=== PATIENT | female | born 1980 | race Caucasian/White ===

== ENCOUNTER 2018-03-10 16:54 | Emergency (ER) | payer OTHER ==
[2018-03-10 17:01] VITALS: TEMP 97.9
[2018-03-10] MEDS ORDERED: KETOROLAC 30 MG/ML 1 ML VIAL IVP STA (18:05)
[2018-03-10] MEDS ORDERED: SODIUM CHLORIDE 0.9% 1,000 ML IV STA (18:05)
--- NOTE | 2018-03-10 18:09 | ED ---
Back Pain HPI - General Chief Complaint: Back Pain/Injury Stated Complaint: Kidney infection Time Seen by Provider: 03/10/18 18:00 Source: patient Limitations: no limitations - History of Present Illness Initial Comments: 38-year-old female patient presents to the emergency department today for evaluation of left flank pain and fevers. The patient states that when she was diagnosed with a kidney infection at urgent care yesterday. States he did start her on Cipro. Patient states that today she seems to be feeling worse. States that she is having increased pain to the left flank. Patient states she has had temperatures up to 101F. Patient states she occasionally becomes nauseous but has not vomited. States that she has a persistent aching in her left flank however does occasionally get very sharp pains to the left side. Patient denies any constipation or diarrhea with this. States that she does have some dysuria but denies any urinary urgency or urinary frequency. Denies any evidence of hematuria. Patient states that she used to get urinary tract infections in her early 20s but no longer has any problems with this. Patient denies any recent rash, shortness breath, chest pain, numbness, tingling, dizziness, weakness, headache, visual changes, or any other complaints. - Related Data Home Medications Medication Instructions Recorded Confirmed ALPRAZolam [Xanax] 0.25 mg PO BID PRN 03/10/18 03/10/18 Ciprofloxacin HCl [Cipro] 500 mg PO BID 03/10/18 03/10/18 FLUoxetine HCL [PROzac] 10 mg PO DAILY 03/10/18 03/10/18 FLUoxetine HCL [PROzac] 40 mg PO DAILY 03/10/18 03/10/18 Mirabegron [Myrbetriq] 50 mg PO DAILY 03/10/18 03/10/18 Tolterodine [Detrol] 2 mg PO DAILY 03/10/18 03/10/18 Allergies Allergy/AdvReac Type Severity Reaction Status Date / Time No Known Allergies Allergy Verified 03/10/18 18:01 Review of Systems ROS Statement: Those systems with pertinent positive or pertinent negative responses have been documented in the HPI. ROS Other: All systems not noted in ROS Statement are negative. Past Medical History Past Medical History: No Reported History History of Any Multi-Drug Resistant Organisms: None Reported Past Surgical History: Section Past Psychological History: Depression Smoking Status: Never smoker Past Alcohol Use History: None Reported Past Drug Use History: None Reported General Exam Limitations: no limitations General appearance: alert, in no apparent distress, other (This is a well- developed, well-nourished adult female patient in no acute distress. Vital signs upon presentation are temperature 97.9F, pulse 89, respirations 18, blood pressure 109/67, pulse ox 100% on room air.) Eye exam: Present: normal appearance, PERRL, EOMI. Absent: scleral icterus, conjunctival injection, periorbital swelling Respiratory exam: Present: normal lung sounds bilaterally. Absent: respiratory distress, wheezes, rales, rhonchi, stridor Cardiovascular Exam: Present: regular rate, normal rhythm, normal heart sounds. Absent: systolic murmur, diastolic murmur, rubs, gallop, clicks GI/Abdominal exam: Present: soft, normal bowel sounds. Absent: distended, tenderness, guarding, rebound, rigid Back exam: Present: normal inspection. Absent: CVA tenderness (R), CVA tenderness (L) Neurological exam: Present: alert, oriented X3, CN II-XII intact Psychiatric exam: Present: normal affect, normal mood Skin exam: Present: warm, dry, intact, normal color. Absent: rash Course Vital Signs 03/10/18 03/10/18 03/10/18 16:59 19:40 20:09 Temperature 97.9 F 97.9 F Pulse Rate 89 77 Respiratory 18 16 Rate Blood Pressure 101/67 110/62 O2 Sat by Pulse 100 100 Oximetry Medical Decision Making - Medical Decision Making 38-year-old female patient presented to the emergency department today for evaluation of left flank pain and fevers. Physical examination is relatively unremarkable. Patient had no CVA tenderness, no abdominal tenderness. Labs reviewed and were unremarkable. Urinalysis shows no evidence of infection. Computed tomography scan of the abdomen and pelvis was obtained for further evaluation of her fever and pain, this acute intra-abdominal process. I did discuss findings and results with the patient. She is currently taking Cipro for urinary tract infection, I did inform her there is no evidence of urinary tract infection however given her fever she is instructed to complete this prescription. She is instructed to follow-up with her primary care physician for recheck in 1-2 days. Return parameters were discussed in detail. She verbalizes understanding and agrees with this plan. - Lab Data Result diagrams: 03/10/18 18:10 03/10/18 18:10 Lab Results 03/10/18 03/10/18 03/10/18 Range/Units 18:10 18:10 18:10 WBC 8.0 (3.8-10.6) k/uL RBC 4.38 (3.80-5.40) m/uL Hgb 13.3 (11.4-16.0) gm/dL Hct 39.5 (34.0-46.0) % MCV 90.2 (80.0-100.0) fL MCH 30.3 (25.0-35.0) pg MCHC 33.6 (31.0-37.0) g/dL RDW 12.8 (11.5-15.5) % Plt Count 196 (150-450) k/uL Neutrophils % 74 % Lymphocytes % 17 % Monocytes % 6 % Eosinophils % 1 % Basophils % 1 % Neutrophils # 5.9 (1.3-7.7) k/uL Lymphocytes # 1.4 (1.0-4.8) k/uL Monocytes # 0.5 (0-1.0) k/uL Eosinophils # 0.1 (0-0.7) k/uL Basophils # 0.0 (0-0.2) k/uL Sodium 136 L (137-145) mmol/L Potassium 3.9 (3.5-5.1) mmol/L Chloride 102 (98-107) mmol/L Carbon Dioxide 27 (22-30) mmol/L Anion Gap 7 mmol/L BUN 10 (7-17) mg/dL Creatinine 0.76 (0.52-1.04) mg/dL Est GFR (CKD-EPI)AfAm >90 (>60 ml/min/1.73 sqM) Est GFR (CKD-EPI)NonAf >90 (>60 ml/min/1.73 sqM) Glucose 97 (74-99) mg/dL Calcium 8.9 (8.4-10.2) mg/dL Total Bilirubin 0.9 (0.2-1.3) mg/dL AST 139 H (14-36) U/L ALT 132 H (9-52) U/L Alkaline Phosphatase 108 (38-126) U/L Total Protein 7.3 (6.3-8.2) g/dL Albumin 4.1 (3.5-5.0) g/dL Amylase 51 (30-110) U/L Lipase 44 (23-300) U/L Urine Color Colorless Urine Appearance Clear (Clear) Urine pH 6.5 (5.0-8.0) Ur Specific [place] 1.002 (1.001-1.035) Urine Protein Negative (Negative) Urine Glucose (UA) Negative (Negative) Urine Ketones Negative (Negative) Urine Blood Negative (Negative) Urine Nitrite Negative (Negative) Urine Bilirubin Negative (Negative) Urine Urobilinogen <2.0 (<2.0) mg/dL Ur Leukocyte Esterase Negative (Negative) - Radiology Data Radiology results: report reviewed, image reviewed CT abdomen and pelvis with contrast was obtained. Report was reviewed in its entirety. Impression by Dr. Daly shows L5 spondylosis. Normal appendix. No renal stone or instruction. Disposition Clinical Impression: Flank pain, Fever Disposition: HOME SELF-CARE Condition: Good Instructions: Fever in Adults (ED), Flank Pain (ED) Additional Instructions: Continue taking Tylenol Motrin for pain control. Follow-up with your primary care physician for recheck as soon as possible. Complete antibiotic prescription as given by urgent care. Return here immediately for any new, worsening, or concerning symptoms. Is patient prescribed a controlled substance at d/c from ED?: No Referrals: Devyn Keen MD [Primary Care Provider] - 1-2 days Time of Disposition: 19:55
[2018-03-10 18:32] LABS: Basophils % (A) 1 %; Eosinophils # (A) 0.1 k/uL (0-0.7); Eosinophils % (A) 1 %; HCT 39.5 % (34.0-46.0); HGB 13.3 gm/dL (11.4-16.0); Lymphocytes # (A) 1.4 k/uL (1.0-4.8); Lymphocytes % (A) 17 %; MCH 30.3 pg (25.0-35.0); MCHC 33.6 g/dL (31.0-37.0); MCV 90.2 fL (80.0-100.0); Mean Platelet Volume 7.5; Monocytes # (A) 0.5 k/uL (0-1.0); Monocytes % (A) 6 %; Neutrophils # (A) 5.9 k/uL (1.3-7.7); Neutrophils % (A) 74 %; Platelet Count 196 k/uL (150-450); RBC 4.38 m/uL (3.80-5.40); RDW 12.8 % (11.5-15.5)
[2018-03-10 18:33] LABS: Appearance,Urine Clear (Clear); Bilirubin,Urine Negative (Negative); Blood,Urine Negative (Negative); Color,Urine Colorless; Glucose,Urine (UA) Negative (Negative); Ketones,Urine Negative (Negative); Leukocyte Esterase,Urine Negative (Negative); Nitrite,Urine Negative (Negative); PH, Urine 6.5 (5.0-8.0); Protein,Urine Negative (Negative); Specific Gravity,Urine 1.002 (1.001-1.035); Urobilinogen,Urine <2.0 mg/dL (<2.0)
[2018-03-10 18:49] LABS: ALT 132 U/L (9-52); AST 139 U/L (14-36); Albumin 4.1 g/dL (3.5-5.0); Alkaline Phosphatase 108 U/L (38-126); Amylase 51 U/L (30-110); Anion Gap 7 mmol/L; Blood Urea Nitrogen 10 mg/dL (7-17); Calcium 8.9 mg/dL (8.4-10.2); Carbon Dioxide 27 mmol/L (22-30); Chloride 102 mmol/L (98-107); Glucose 97 mg/dL (74-99); Lipase 44 U/L (23-300); Potassium 3.9 mmol/L (3.5-5.1); Sodium 136 mmol/L (137-145); Total Bilirubin 0.9 mg/dL (0.2-1.3); Total Protein 7.3 g/dL (6.3-8.2)
--- NOTE | 2018-03-10 19:36 | CT ---
EXAMINATION TYPE: CT abdomen pelvis w con DATE OF EXAM: 03/10/2018 COMPARISON: None HISTORY: flank pain CT DLP: 1106 mGycm Automated exposure control for dose reduction was used. TECHNIQUE: Helical acquisition of images was performed from the lung bases through the pelvis. CONTRAST: Performed without Oral Contrast and with IV Contrast, patient injected with 100mL mL of Isovue 300. FINDINGS: Lung bases are clear. There is no pleural effusion. Heart size is normal. Liver spleen pancreas gallbladder appear normal. Bile ducts are not dilated. There is no adrenal mass . There is no hiatal hernia. There is no pericardial effusion. Kidneys show satisfactory contrast opa cification. There is no hydronephrosis. There is no retroperitoneal adenopathy. Bladder distends smoo thly. There is no free fluid in the pelvis. Uterus is anteverted. There is no evidence of pelvic mass . There is no inguinal hernia. There is no inguinal adenopathy. There is no mesenteric adenopathy. There is no intestinal wall thickening. There are no dilated loops. There is no evidence of a thicken ed appendix. Appendix appears normal. Lumbar vertebra have normal spacing and alignment. There is L5 spondylolysis.. IMPRESSION: L5 SPONDYLOLYSIS. NORMAL APPENDIX. NO RENAL STONE OR OBSTRUCTION.
[2018-03-10] MEDS: ONDANSETRON 4 MG/2 ML VIAL IVP STA ×2 (19:38→19:45)
[2018-03-10] MEDS: MORPHINE SULFATE 4 MG/ML SYRINGE IVP STA ×2 (19:38→19:40)
[2018-03-10 19:41] VITALS: BP 110/62; PULSE 77; RESP 16
[2018-03-10] MEDS ORDERED: HYDROcodone/APAP 5-325MG 1 EACH TAB PO STA (19:55)
[2018-03-10] MEDS ORDERED: ACET/COD 300 MG/30 MG STARTER PACK 6 TAB BTL PO STA (19:55)
== END 2018-03-10 20:10 | disposition home or self-care (01) ==
LOC: EC 16:54
DX: R50.9 Fever, unspecified (principal); R10.9 Unspecified abdominal pain; M54.9 Dorsalgia, unspecified; R11.0 Nausea; R30.0 Dysuria; F32.9 Major depressive disorder, single episode, unspecified; Z79.899 Other long term (current) drug therapy
CPT/HCPCS: 36415; 74177; 80053; 81003; 82150; 83690; 85025; 87040; 96361; 96374; 99284